=== PATIENT | female | born 1940 | race Caucasian/White ===

== ENCOUNTER 2018-03-27 03:18 | Observation (INO) | payer MEDICARE ==
[2018-03-27] MEDS ORDERED: Gabapentin 300 MG CAP PO SCH (05:00)
[2018-03-27] MEDS ORDERED: Morphine ER 30 MG TAB PO SCH (05:00)
[2018-03-27 09:53] LABS: #Eosinphils 0.3 thou/uL (0.0-0.7); #Lymphocytes 2.4 thou/uL (1.20-3.40); #Monocytes 0.6 thou/uL (0.11-0.59); #Neutrophils 5.7 thou/uL (1.40-6.50); %Basophils 0.5 % (0.0-1.0); %Eosinophils 3.3 % (0.0-10.0); %Lymphocytes 26.6 % (21.0-51.0); %Monocytes 6.1 % (0.0-10.0); %Neutrophils 63.5 % (42.0-75.0); Hemoglobin 12.8 g/dL (12.0-16.0); Mean Corpuscular HGB CONC 32.5 g/dL (32.0-36.0); Mean Corpuscular Hemoglobin 30.9 pg (27.0-31.0); Platelet Count 274 thou/uL (130-400); RBC Distribution Width 12.8 % (11.5-14.5); Red Blood Cell (RBC) Count 4.16 mill/uL (4.20-5.40)
[2018-03-27] MEDS ORDERED: Regadenoson 0.4 MG/5 ML SYRINGE ONE (10:00)
[2018-03-27 10:19] LABS: ALT (SGPT) 14 U/L (8-55); AST (SGOT) 20 U/L (5-34); Albumin 3.6 g/dL (3.4-4.8); Alkaline Phosphatase 107 U/L (40-150); Anion Gap 12 mmol/L (10-20); BUN (Urea Nitrogen) 14 mg/dL (9.8-20.1); Bilirubin, Total 0.4 mg/dL (0.2-1.2); Calc. Creatinine Clearance 0 mL/min (70-130); Calcium 9.7 mg/dL (7.8-10.44); Carbon Dioxide 31 mmol/L (23-31); Cardiac Risk 2.7 (Less than 4.5); Chloride 99 mmol/L (98-107); Cholesterol 155 mg/dl (< 200 Desired); Estimated GFR-MDRD 58; Globulin 2.7 g/dL (2.4-3.5); Glucose 91 mg/dL (83-110); HDL Cholesterol 58 mg/dL (>60 Neg Risk); LDL Cholesterol, Calculated 86 mg/dL; Potassium 3.4 mmol/L (3.5-5.1); Protein, Total 6.3 g/dL (6.0-8.3); Sodium 139 mmol/L (136-145); Triglycerides 55 mg/dL (Less than 150)
[2018-03-27] MEDS ORDERED: Acetaminophen 325 MG TAB PO PRN (10:25)
[2018-03-27] MEDS ORDERED: HYDROcodone/Acetaminophen 5/325 mg Tablet PO PRN (10:25)
[2018-03-27] MEDS ORDERED: Senokot S 8.6-50 MG TAB PO PRN (10:25)
--- NOTE | 2018-03-27 14:39 | NM ---
CARDIAC SPECT WITH EJECTION FRACTION AND WALL MOTION: Date: 03/27/18 HISTORY: Chest pain. History of congestive heart failure, atrial fibrillation, COPD, hypertension, and smoking . TECHNIQUE: Lexiscan sestamibi study is performed. Patient was injected with 28.8 mCi technetium-99m sestamibi in travenously for stress images and patient was injected with 9.0 mCi technetium-99m sestamibi intraven ously for resting images. FINDINGS: Multiple SPECT images in the short axis, vertical long axis, and horizontal long axis demonstrate min imal decreased activity in the apex and inferior wall without evidence for ischemia. TID: 1.05 LHR: 0.28 EDV: 67 mL EF: 81% MYOCARDIAL PERFUSION WALL MOTION: No significant focal wall motion abnormality. IMPRESSION: Minimal decreased activity on both stress and rest images in the inferior apex. No scan evidence for ischemia. POS: [facility]
[2018-03-27] MEDS ORDERED: Potassium Chloride 20 MEQ TAB PO SCH (14:45)
[2018-03-27 19:24] VITALS: BMI 28.8
[2018-03-27] MEDS: Morphine ER 30 MG TAB PO SCH ×2 (19:54→19:56)
[2018-03-27] MEDS: Gabapentin 300 MG CAP PO SCH ×3 (19:54→19:56)
[2018-03-27] MEDS: Apixaban 5 MG TAB PO SCH (19:54)
[2018-03-27] MEDS: Famotidine 20 MG TAB PO SCH (19:56)
--- NOTE | 2018-03-27 22:53 | HP ---
PRIMARY CARE PHYSICIAN: Ciarra Piña MD MANAGER OF SUSTAINABILITY: Sebastián Rios MD. HISTORY OF PRESENT ILLNESS: Ms. Beckford is a very pleasant 77-year-old female who was transferred from [place] ER for chest pain. The patient reports gradual onset of tightness yesterday evening associated with worsening dyspnea. Per patient, she was hospitalized here few months ago and was told she had a heart attack. The patient denies history of stents or angioplasty. She denies any chest pain when transferred to [facility] ER, but does report chronic back pain. She reports that she was scheduled for a procedure today to repair a compression fracture in her thoracic spine, which was obviously canceled when she reported to the emergency room for chest pain. Of note, daughter reports that pain specialist in [place] who was going to do the procedure reports that he will not do it unless she gets clearance from Cardiology. Dr. Rios saw her on her visit in December. She had an appointment to follow up with him, but fell and injured her back and has been dealing with a compression fracture and has not rescheduled that appointment. It is also important to note that the patient has 2 medical record numbers in the system and most of her history is in the alternate medical record number that will be need to merge with her current visit. The patient was discharged on 01/18/2018 with pneumonia, AFib, atrial flutter on Multaq, chronic deconditioning, acute on chronic congestive diastolic heart failure, suspected sepsis due to pneumonia, acute metabolic encephalopathy which had resolved, acute hypoxic respiratory failure which had resolved, known coronary artery disease, chronic pain syndrome, and hypertension. The patient did see a pain specialist in [place], who manages her chronic back pain. The patient reports that the pain she experienced within the last 24 hours was similar in nature to the pain that brought her to the emergency room in December which caused her concern. The patient's HeartScore was 5. The patient was admitted to the observation unit for further management. The patient is a full code. Some history was obtained from her daughter who is her surrogate decision maker. PAST MEDICAL AND SURGICAL HISTORY: Hypoxic respiratory failure, sepsis, metabolic encephalopathy, atrial fibrillation, demand ischemia, urinary tract infection requiring hospitalization in December. The patient has history of hypertension, hypothyroidism, osteoporosis, chronic back pain on high dose narcotics, history of lung cancer with prior resection on the right side, history of lumbar fusion, cholecystectomy, hernia repair, left hip replacement, and COPD. SOCIAL HISTORY: The patient is a recent smoker. Reports that she smoked about a pack a day for 50 years. She quit in 11/2017. Denies any alcohol or drug use. Lives alone and has assistance from her daughter, Ms. Jake Torres. FAMILY HISTORY: Prior records indicate her mother of lymphoma at the age of 80; father at the age of 87, cause unknown. REVIEW OF SYSTEMS: CONSTITUTIONAL: The patient denies fever or chills. EYES: Denies any changes to vision. ENT: Denies any ears, nose, or throat pain. CARDIOVASCULAR: Reports chest pain. Denies palpitations. RESPIRATORY: Reports cough, reports shortness of breath, reports green sputum. GASTROINTESTINAL: Denies any abdominal pain, constipation, or diarrhea. MUSCULOSKELETAL: Reports chronic back pain. SKIN: Denies rash or skin changes. NEUROLOGIC: Denies any focal sensory or motor deficits. ENDOCRINE: Denies any changes. All other review of systems negative except mentioned in the HPI. PHYSICAL EXAMINATION: VITAL SIGNS: Blood pressure 116/55, pulse is 62, respirations 12, pO2 sats are 93% on O2 2 L. The patient appears nontoxic, is alert and oriented to person, place, and time, is in no apparent distress. HEAD: Atraumatic and normocephalic. EYES: Pupils are equal, round, and reactive to light. Extraocular muscles are intact. ENT: Mouth exam is normal. Mucous membranes are moist. NECK: Normal range of motion. Trachea is midline. RESPIRATORY/CHEST: Breath sounds with diffuse expiratory wheezes. Symmetric chest movement. CARDIOVASCULAR: Regular heart rate and rhythm. Heart sounds are normal. ABDOMEN: Nontender. Bowel sounds are heard. BACK: Normal inspection. No CVA tenderness. UPPER EXTREMITIES: Inspection normal, range of motion is normal. LOWER EXTREMITIES: Inspection normal. Range of motion is normal. Pedal pulses are equal bilaterally. No edema is noted. NEURO: Speech is normal. The patient is oriented to person, place, and time. No focal motor or sensory deficits. SKIN: Warm, dry, normal in color. IMAGING STUDIES: EKG normal sinus rhythm, beats per minute 65, conduction normal, ST segments normal, axis is normal, has a nonspecific T-wave abnormality. PERTINENT LABORATORY DATA: White blood cell count is 9, hemoglobin 12.8, hematocrit 39.5, and platelet count 274. Sodium 139, potassium 3.4, chloride 99, gap is 12, BUN is 14, creatinine is 0.93, estimated GFR is 58. Liver enzymes are unremarkable. Troponin x3 are undetectable. Triglycerides are 55, cholesterol 155, LDL is 86, HDL is 58, 3rd generation TSH is 2.57. IMPRESSION AND PLAN: 1. Chest pain. We will trend troponins, order a stress test. The patient had an echocardiogram in December per previous hospital visit records. We will ask Cardiology to consult based on significant cardiology history. 2. History of atrial fibrillation. We will continue home medications, Eliquis and Multaq. 3. Hyperlipidemia. We will continue home medication. 4. Hypothyroidism. We will continue home medication. 5. Chronic back pain. We will continue home medication. 6. Hypertension. We will continue home medication. We will trend vital signs. We will add p.r.n. medications as needed. 7. Deep venous thrombosis prophylaxis is needed based on the patient being on Eliquis. 8. We will add gastrointestinal prophylaxis as needed. 9. Hospital course will be dependent on clinical findings. Job ID: [id number]
[2018-03-28 05:18] LABS: #Eosinphils 0.4 thou/uL (0.0-0.7); #Lymphocytes 2.5 thou/uL (1.20-3.40); #Monocytes 0.6 thou/uL (0.11-0.59); #Neutrophils 5.4 thou/uL (1.40-6.50); %Basophils 0.5 % (0.0-1.0); %Eosinophils 4.6 % (0.0-10.0); %Lymphocytes 27.7 % (21.0-51.0); %Monocytes 7.1 % (0.0-10.0); %Neutrophils 60.1 % (42.0-75.0); Hemoglobin 12.6 g/dL (12.0-16.0); Mean Corpuscular HGB CONC 32.6 g/dL (32.0-36.0); Mean Corpuscular Hemoglobin 31.2 pg (27.0-31.0); Mean Corpuscular Volume 95.7 fL (78.0-98.0); Mean Platelet Volume 7.3 fL (7.4-10.4); Platelet Count 251 thou/uL (130-400); RBC Distribution Width 12.9 % (11.5-14.5); Red Blood Cell (RBC) Count 4.02 mill/uL (4.20-5.40)
[2018-03-28 05:41] LABS: ALT (SGPT) 12 U/L (8-55); AST (SGOT) 19 U/L (5-34); Albumin 3.4 g/dL (3.4-4.8); Alkaline Phosphatase 101 U/L (40-150); Anion Gap 13 mmol/L (10-20); BUN (Urea Nitrogen) 14 mg/dL (9.8-20.1); Bilirubin, Total 0.2 mg/dL (0.2-1.2); Calc. Creatinine Clearance 46 mL/min (70-130); Calcium 9.4 mg/dL (7.8-10.44); Carbon Dioxide 31 mmol/L (23-31); Chloride 99 mmol/L (98-107); Estimated GFR-MDRD 61; Globulin 2.4 g/dL (2.4-3.5); Glucose 102 mg/dL (83-110); Potassium 3.9 mmol/L (3.5-5.1); Protein, Total 5.8 g/dL (6.0-8.3); Sodium 139 mmol/L (136-145)
[2018-03-28] MEDS ORDERED: Levothyroxine Sodium 50 MCG TAB PO SCH (06:00)
[2018-03-28] MEDS ORDERED: Aspirin 81 mg Enteric Coated Tablet PO SCH (09:00)
[2018-03-28] MEDS ORDERED: Enoxaparin Sodium 40 MG/0.4 ML SYRINGE SC SCH (09:00)
[2018-03-28] MEDS ORDERED: methylPREDNISolone Sod Succ/PF 125 MG/2 ML VIAL IVP SCH (09:00)
[2018-03-28] MEDS: Famotidine 20 MG TAB PO SCH (10:03)
[2018-03-28] MEDS: Morphine ER 30 MG TAB PO SCH ×2 (10:04→14:43)
[2018-03-28] MEDS: Gabapentin 300 MG CAP PO SCH ×3 (10:05→17:38)
[2018-03-28] MEDS: Apixaban 5 MG TAB PO SCH (10:05)
[2018-03-28 11:36] LABS: Hemoglobin 13.7 g/dL (12.0-16.0); Platelet Count 254 thou/uL (130-400)
--- NOTE | 2018-03-28 15:42 | CON ---
DATE OF CONSULTATION: HISTORY OF PRESENT ILLNESS: The patient is a very pleasant 77-year-old woman, who presents with recurrent chest discomfort. The patient recently was in the hospital with atrial fibrillation. She suffered a small non-Q-wave myocardial infarction. She underwent a cardiac catheterization. She was found to have normal left ventricular systolic function with mild coronary artery disease. She had two sequential 20% lesions in the right coronary artery. The patient was in her usual state of health when she had been in an argument and developed left-sided chest discomfort. She presented to the emergency room for further evaluation. The patient denies having any present chest discomfort. PAST MEDICAL HISTORY: 1. Atrial fibrillation. 2. Hypertension. 3. Hypothyroidism. 4. Lung carcinoma. 5. History of carcinoid tumor. PAST SURGICAL HISTORY: Hernia surgery and hip replacement. SOCIAL HISTORY: Long history of tobacco abuse. FAMILY HISTORY: Positive family history of heart disease. PHYSICAL EXAMINATION: GENERAL: Thin woman, in no acute distress. VITAL SIGNS: Blood pressure was 176/80. NECK: Showed no jugular venous distention. LUNGS: Diminished breath sounds bilateral. HEART: Regular rate and rhythm. Normal S1 and S2. ABDOMEN: Nondistended. EXTREMITIES: Show trace edema. LABORATORY DATA: White blood cell count 9.0, hemoglobin 12.6, hematocrit 38.5, and platelets are 251. Sodium 139, potassium 3.9, chloride 99, bicarbonate 31, BUN 14, creatinine is 0.9, glucose is 102. EKG revealed normal sinus rhythm, otherwise normal ECG. IMPRESSION: 1. Chest pain suggestive of angina. 2. History of mild coronary artery disease. 3. History of paroxysmal atrial fibrillation. 4. Chronic obstructive pulmonary disease. 5. History of carcinoid tumor. 6. Tobacco abuse. This patient presented with angina. Cardiac enzymes are unremarkable. EKG showed no evidence of ischemia. From a cardiac standpoint, she should be on lipid-lower medication. She should also have nitroglycerin tablets. We will follow this patient with you through her hospitalization . Job ID: [id number] [facility]
[2018-03-28 16:29] VITALS: BP 170/76; TEMP 99
== END 2018-03-28 17:20 | disposition home or self-care (01) ==
LOC: EDSEX → ERS 03:18 → ERHOLD 05:16 → 2SW 18:51
PROVIDERS: ADMIT Internal Medicine; ATTEND Internal Medicine
DX: R07.89 Other chest pain (principal); R06.00 Dyspnea, unspecified; I48.0 Paroxysmal atrial fibrillation; I48.92 Unspecified atrial flutter; M80.88XA Other osteoporosis with current pathological fracture, vertebra(e), initial encounter for fracture; I25.2 Old myocardial infarction; I11.0 Hypertensive heart disease with heart failure; I50.32 Chronic diastolic (congestive) heart failure; I25.10 Atherosclerotic heart disease of native coronary artery without angina pectoris; G89.4 Chronic pain syndrome; E03.9 Hypothyroidism, unspecified; J44.9 Chronic obstructive pulmonary disease, unspecified; F17.210 Nicotine dependence, cigarettes, uncomplicated; E78.5 Hyperlipidemia, unspecified; Z85.118 Personal history of other malignant neoplasm of bronchus and lung; Z79.01 Long term (current) use of anticoagulants; Z79.51 Long term (current) use of inhaled steroids; Z79.899 Other long term (current) drug therapy; Z98.1 Arthrodesis status; W19.XXXA Unspecified fall, initial encounter; Z90.2 Acquired absence of lung [part of]
CPT/HCPCS: 78452; 80053; 80061; 82565; 84484; 85014; 85018; 85025; 85049; 93005; 93017; 94640 ×2; 96374; 97139 ×2; 99285; 99406; A9500; G0378 ×2; 36415; 84443; J2785; J2930; J7620